=== PATIENT | male | born 1975 | race Caucasian/White ===

== ENCOUNTER → 2024-02-03 17:01 | Outpatient (REF) | payer OTHER, SELFPAY | LOC: RAD 17:01 | PROVIDERS: ATTENDING PHYSICIAN Internal Medicine | DX: J45.909 Unspecified asthma, uncomplicated (principal); R09.89 Other specified symptoms and signs involving the circulatory and respiratory systems | CPT/HCPCS: 71046 ==

== ENCOUNTER → 2024-09-28 18:04 | Outpatient (REF) | payer OTHER, SELFPAY | LOC: RAD 18:04 | PROVIDERS: ATTENDING PHYSICIAN Internal Medicine; FAMILY PHYSICIAN Internal Medicine | DX: J40 Bronchitis, not specified as acute or chronic (principal) | CPT/HCPCS: 71046 ==

== ENCOUNTER 2024-11-09 14:19 | Emergency (ER) | payer OTHER, SELFPAY ==
[2024-11-09 14:33] VITALS: BP 157/100
--- NOTE | 2024-11-09 14:33 | ED.GENMED ---
ED Provider Triage
<Joaquim Ocampo Jr., PA-C - Last Filed: 11/09/24 14:35>
-
Patient seen by provider in Triage?: Seen in Triage
Attestation: A medical screening examination has been initiated by a qualified medical provider. Based on the assessment performed at this time, it has been determined that an emergent medical condition may exist and the patient has been informed
that further medical evaluation and possible additional diagnostic testing may be needed.
HPI: 49-year-old male presenting to the emergency department today with concerns of low back pain starting yesterday worsening today. Discomfort is radiating into the left leg initially now radiating bilaterally to the groin. No numbness weakness
or bowel or bladder issues. Initial imaging ordered.
GENERAL: Alert , in no apparent distress
EYE: No visual abnormalities.
NECK: Trachea midline
ENT: No visible abnormalities.
LUNGS: No acute respiratory distress
NEUROLOGICAL: Alert and oriented
SKIN: Skin intact. No visible changes.
MUSCULOSKELETAL: Moving extremities normally
PSYCH: Normal and appropriate interaction.
This is a medical evaluation conducted in person to initiate diagnostic evaluation and provide initial therapeutics. Please see further documentation by the treating clinician.
History of Present Illness
<Joaquim Ocampo Jr., PA-C - Last Filed: 11/09/24 14:35>
General
Chief Complaint: Back Pain
Time Seen by Provider: 11/09/24 15:19
<Trent North MD - Last Filed: 11/09/24 16:01>
General
Source: patient
Exam Limitations: none
History of Present Illness
History of Present Illness:
3 days of left buttock pain with some shooting pain behind the left leg. No weakness in the leg. No bowel or bladder issues. No abdominal pain. No urinary symptoms.
Past History
<Joaquim Ocampo Jr., PA-C - Last Filed: 11/09/24 14:35>
Past History
ED Past Medical History: None
ED Past Surgical History: Cholecystectomy
Social History
Tobacco: Non-smoker
Alcohol: None
Drug: None
Personal:
Living: with family
Employment: Employed
Family History
Family History: Negative Diabetes
Review of Systems
<Trent North MD - Last Filed: 11/09/24 16:01>
Review of Systems
All Other Systems: Not applicable
Constitutional: Denies fever
ABD/GI: Reports no symptoms
: Reports no symptoms
Phy Exam
<Trent North MD - Last Filed: 11/09/24 16:01>
Physical Exam
Physical Exam:
GENERAL: Alert and oriented in no apparent distress. Ambulating around the room in no distress
EYE: Orbits normal.
NECK: Supple
CARDIAC: Regular rate and rhythm without any obvious murmurs.
LUNGS: Clear breath sounds,normal
ABDOMEN: Soft, without focal tenderness or distention. No pulsatile masses
NEUROLOGICAL: Alert and oriented , grossly non-focal
SKIN: Warm and dry, no rash or lesion, no discoloration, skin intact.
MUSCULOSKELETAL: No edema,no deformity.Good color. No swelling to the left leg no cord no erythema. Good distal pulses and color. Mild pain with left straight leg raising. No numbness tingling or weakness. Decreased flexion at the hip which
patient states is usually much better.
PSYCH: Normal and appropriate interaction.
Course
<Joaquim Ocampo Jr., PA-C - Last Filed: 11/09/24 14:35>
Orders/Labs/Results
Orders:
Orders
11/09/24 14:33
Lumbar Spine, 2 or 3 View [CR Lumbar Spine 2 Or 3 Views] Urgent
Comment:
Reason For Exam: lbp radiation to groin
11/09/24 15:53
Ketorolac [Toradol] 60 mg IM NOW STA
Vital Signs
Initial and Last Documented VS:
Initial Vital Signs
Temp Pulse Resp BP Pulse Ox
98.3 F 98 20 157/100 99
11/09/24 14:33 11/09/24 14:33 11/09/24 14:33 11/09/24 14:33 11/09/24 14:33
Last Documented Vital Signs
Temp Pulse Resp BP Pulse Ox
98.3 F 98 20 157/100 99
11/09/24 14:33 11/09/24 14:33 11/09/24 14:33 11/09/24 14:33 11/09/24 14:33
<Trent North MD - Last Filed: 11/09/24 16:01>
Orders/Labs/Results
Orders:
Orders
11/09/24 14:33
Lumbar Spine, 2 or 3 View [CR Lumbar Spine 2 Or 3 Views] Urgent
Comment:
Reason For Exam: lbp radiation to groin
11/09/24 15:53
Ketorolac [Toradol] 60 mg IM NOW STA
Vital Signs
Initial and Last Documented VS:
Initial Vital Signs
Temp Pulse Resp BP Pulse Ox
98.3 F 98 20 157/100 99
11/09/24 14:33 11/09/24 14:33 11/09/24 14:33 11/09/24 14:33 11/09/24 14:33
Last Documented Vital Signs
Temp Pulse Resp BP Pulse Ox
98.3 F 98 20 157/100 99
11/09/24 14:33 11/09/24 14:33 11/09/24 14:33 11/09/24 14:33 11/09/24 14:33
<Trent North MD - Last Filed: 11/09/24 16:01>
MDM/Problems Addressed
Differential Diagnosis Includes:
Patient describing radiculopathy like pain. Nothing to support a vascular issue. Abdomen is nontender. No pulsatile masses. Good distal pulses and color. Highly doubt DVT. No risk factors for DVT. No cord no erythema no swelling no warmth. I
did offer and discuss ultrasound the patient refuses at this time. Very low suspicion for venous issue. Pain management anti-inflammatories. Will try a short course of steroids and follow-up. Patient is comfortable with this approach
<Trent North MD - Last Filed: 11/09/24 16:01>
*Pulse Oximetry
Patient hypoxic: no
*Critical Care Note
Total Time (30-74mins, 75-104mins- exclusive of procedures): Not Applicable
ED Attending Note
<Joaquim Ocampo Jr., PA-C - Last Filed: 11/09/24 14:35>
-
Portions of this chart may have been created with voice recognition software.� Occasional wrong word or��sound alike� substitutions may have occurred due to the inherent limitations of voice recognition software.
Discharge Plan
Departure
Patient Disposition: Home (Routine Discharge)
Date of Disposition: 11/09/24
Time of Disposition: 15:57
Patient with high blood pressure during this ER visit?: Yes
Discharge Problem:
Low back pain/radiculopathy
Instructions: Low Back Pain (DC), Radiculopathy (DC), BLOOD PRESSURE
Prescriptions:
New
cyclobenzaprine 10 mg tablet
10 mg PO TID PRN (Reason: muscle spasm) Qty: 14 0RF
prednisone 10 mg tablet
10 mg PO DAILY Qty: 20 0RF
Rx Instructions:
4 tablets daily day 1. Then 1 tablet less every other day until gone
No Action
No Current Medications
famotidine 20 MG tablet
20 mg PO BID Qty: 28 0RF
Rx Instructions:
Take 20 mg twice a day for 14 days
ascorbic acid (vitamin C) [Vitamin C] 500 MG tablet
1,000 mg PO BID Qty: 56 0RF
Rx Instructions:
Take 1,000 mg twice a day for 14 days
aspirin 81 MG tablet,chewable
81 mg PO DAILY Qty: 14 0RF
Rx Instructions:
Take 81 mg daily for 14 days
zinc sulfate 220 MG capsule
220 mg PO DAILY Qty: 14 0RF
Rx Instructions:
Take 220 mg daily for 14 days
cholecalciferol (vitamin D3) 1,000 UNITS tablet
2,000 units PO DAILY Qty: 28 0RF
Rx Instructions:
Take 2,000 units daily for 14 days
melatonin 5 MG tablet
5 mg PO HS Qty: 14 0RF
Rx Instructions:
Take 5 mg daily at bedtime for 14 days
Referrals:
Tomer Merchant MD [Active] - Next open appointment
Activity Restrictions/Additional Instructions:
Continue Advil Motrin or Aleve. Take with food
You can also add Tylenol
Prednisone taper as directed
You can try the muscle relaxer and see if this helps
Also follow-up closely with your primary physician
Discharge Date and Time
Print Language: STATELESS
[2024-11-09] MEDS: TORADOL 60 MG IM (16:17)
[2024-11-09 16:38] VITALS: BP 137/97
== END 2024-11-09 16:39 | disposition home or self-care (01) ==
LOC: EMR 14:19
PROVIDERS: EMERGENCY PHYSICIAN Emergency Medicine
DX: M54.50 Low back pain, unspecified (principal); Z90.49 Acquired absence of other specified parts of digestive tract
CPT/HCPCS: 99283; 72100